=== PATIENT | female | born 1955 | race Caucasian/White ===

== ENCOUNTER → 2018-07-18 07:24 | Emergency (ER) | payer MEDICARE, MEDICAID ==
[~2018-07-18 07:24] MED LIST: Albuterol/Ipratropium NEB.SOL* Albuterol 2.5 MG/Ipratropium 0.5 MG 3 ML ONE; LORazepam TAB(*) 1 MG PO ONE; methylPREDNISolone 125 MG* 2 ML VIAL IV ONE
--- NOTE | 2018-07-18 07:43 | ED ---
Shortness of Breath - HPI Summary HPI Summary: Patient is a 62 y/o F w/ c/o SOB onsetting last night. She reports similar Sx a couple of weeks ago. EMS was called this morning, they state that upon arrival patient was coughing, no wheezes reported. EMS provided 4 L o2 NC, patient had ~ 99 o2 sat. No other treatment provided. Patient notes that she has albuterol inhaler, reports taking multiple puffs. PMHx of COPD and asthma denied, patient is a former smoker. Patient also reports productive cough w/ clear phlegm and feeling "hot and cold". She also claims that she is experiencing bloody stools and diarrhea, PHMx of hemorrhoids is reported. On triage, associated severity is rated 9/10. Nothing is noted to aggravate/alleviate Sx. Home medications and allergies are reviewed. - History of Current Complaint Time Seen by Provider: 07/18/18 07:34 Hx Obtained From: Patient Onset/Duration: Lasting Days - last night, Still Present Timing: Constant Current Severity: Severe - 9/10 on triage Aggrevating Factors: Nothing Alleviating Factors: Nothing Associated Signs & Symptoms: Cough (Productive) - Allergy/Home Medications Allergies/Adverse Reactions: Allergies Allergy/AdvReac Type Severity Reaction Status Date / Time No Known Allergies Allergy Verified 06/06/17 15:35 PMH/Surg Hx/FS Hx/Imm Hx Endocrine/Hematology History: Denies: Hx Diabetes Cardiovascular History: Denies: Hx Hypertension, Hx Pacemaker/ICD Respiratory History: Denies: Hx Asthma, Hx Chronic Obstructive Pulmonary Disease (COPD) History: Denies: Hx Renal Disease Sensory History: Denies: Hx Hearing Aid Psychiatric History: Denies: Hx Panic Disorder - Cancer History Hx Chemotherapy: No Hx Radiation Therapy: No - Surgical History Surgery Procedure, Year, and Place: LSP- 1976, c-sect x2, Lt wrist- [facility] - Family History Known Family History: Positive: Respiratory Disease - No FMHx of asthma is reported - Social History Alcohol Use: Occasionally Alcohol Amount: PT SAYS SHE USED TO DRINK DAILY Substance Use Type: Reports: None Smoking Status (MU): Former Smoker Type: Cigarettes Amount Used/How Often: 1/2 pack day Review of Systems Positive: Other - feeling "hot and cold" Positive: Shortness Of Breath, Cough - productive Positive: Diarrhea, Other - POSITIVIE - BLOODY STOOLS All Other Systems Reviewed And Are Negative: Yes Physical Exam - Summary Physical Exam Summary: VITAL SIGNS: Reviewed. GENERAL: Patient is a well-developed and nourished female who is lying comfortable in the stretcher. Patient is not in any acute respiratory distress. HEAD AND FACE: No signs of trauma. No ecchymosis, hematomas or skull depressions. No sinus tenderness. EYES: PERRLA, EOMI x 2, No injected conjunctiva, no nystagmus. EARS: Hearing grossly intact. Ear canals and tympanic membranes are within normal limits. MOUTH: Oropharynx within normal limits. NECK: Supple, trachea is midline, no adenopathy, no JVD, no carotid bruit, no c- spine tenderness, neck with full ROM. CHEST: Symmetric, no tenderness at palpation LUNGS: Decreased and coarse breath sounds bilaterally. No wheezing or crackles. CVS: Regular rate and rhythm, S1 and S2 present, no murmurs or gallops appreciated. ABDOMEN: Soft, non-tender. No signs of distention. No rebound no guarding, and no masses palpated. Bowel sounds are normal. EXTREMITIES: FROM in all major joints, no edema, no cyanosis or clubbing. NEURO: Alert and oriented x 3. No acute neurological deficits. Speech is normal and follows commands. SKIN: Dry and warm Triage Information Reviewed: Yes Vital Signs On Initial Exam: Initial Vitals Temp Pulse Resp BP Pulse Ox 98.4 F 74 25 185/98 97 07/18/18 07:35 07/18/18 07:35 07/18/18 07:35 07/18/18 07:35 07/18/18 07:35 Vital Signs Reviewed: Yes Diagnostics - Laboratory Result Diagrams: 07/18/18 07:41 07/18/18 07:41 Lab Statement: Any lab studies that have been ordered have been reviewed, and results considered in the medical decision making process. - Radiology CXR Radiology Interpretation Completed By: Radiologist Summary of Radiographic Findings: CXR. IMPRESSION: FINDINGS CONSISTENT WITH COPD, NO EVIDENCE FOR ACUTE FINDING. THIS REPORT WAS REVIEWED BY YUE BUSTOS. - EKG 0750 Cardiac Rate: Other Rate - sinus arrhythmia with rate of 70 bpm Summary of EKG Findings: EKG showed sinus arrhythmia with rate of 70 BPM, no ST elevation. Re-Evaluation - Re-Evaluation First Eval Re-Evaluation Time: 08:38 Comment: nurse stated that patient is complaining of dizziness and anxiety, Therefore the patient was given Ativan Second Eval Re-Evaluation Time: 09:40 Change: Improved Comment: Patient reported alleviation of Sx after Ativan. A reexamination of the fontanelles are clear to auscultation bilateral. I discussed all the findings and test results with the patient. Patient was instructed to return to the emergency room immediately if any of the symptoms return or worsens. Plan of care was discussed with the patient and understands and agrees. All questions were answered at patient satisfaction. There were no further complaints or concerns. Lung exam before discharge: CTA B/L. Good air exchange. No wheezing or crackles heard. CVS: S1 and S2 present. No murmurs appreciated. Patient is alert and oriented x 3. Patient is hemodynamically stable. Patient will be discharged home with follow up PCP in the next 2-3 days Course/Dx - Course Assessment/Plan: This patient is a 62-year-old female who presents to the emergency department with chief complaint of shortness of breath. Has medical history significant for diverticulitis, depression, osteoarthritis and fibromyalgia. She also has history of . In the ED course the patient has coarse breath sounds and decreased breath sounds. The patient also reports that she is a former smoker. She has no history of COPD or asthma however the patient has a prescription for albuterol. Chest x-ray impression: Findings consistent with COPD. No evidence for acute findings. Blood work without any significant abnormality except for BNP of 472. Patient reported she had occasional blood in the stool. Therefore, blood is negative. In the ED course the patient was given 1 DuoNeb's and Solu-Medrol. After these medications the symptoms have improved. Patient also reported that she was having anxiety and dizziness. Therefore the patient was given Ativan and all her symptoms have subsided. At this point the patient reports she is feeling better. A reexamination of the fontanelles are clear to auscultation bilateral. I discussed all the findings and test results with the patient. Patient was instructed to return to the emergency room immediately if any of the symptoms return or worsens. Plan of care was discussed with the patient and understands and agrees. All questions were answered at patient satisfaction. There were no further complaints or concerns. Lung exam before discharge: CTA B/L. Good air exchange. No wheezing or crackles heard. CVS: S1 and S2 present. No murmurs appreciated. Patient is alert and oriented x 3. Patient is hemodynamically stable. Patient will be discharged home with follow up PCP in the next 2-3 days - Diagnoses Differential Diagnosis/HQI/PQRI: Positive: Asthma, Bronchitis, CHF, COPD Exacerbation Provider Diagnoses: COPD with acute exacerbation Discharge - Sign-Out/Discharge Documenting (check all that apply): Patient Departure - discharge - Discharge Plan Condition: Stable Disposition: HOME Prescriptions: predniSONE TAB* [Deltasone 20 MG TAB*] 20 mg PO DAILY #8 tab Patient Education Materials: COPD (Chronic Obstructive Pulmonary Disease) (ED) Referrals: Todd Ny DO [Primary Care Provider] - 3 Days Additional Instructions: RETURN TO ED FOR ANY NEW OR WORSENING SYMPTOMS. FOLLOW UP WITH PRIMARY CARE PHYSICIAN IN 2-3 DAYS. - Billing Disposition and Condition Condition: STABLE Disposition: Home - Attestation Statements Document Initiated by Scribe: Yes Documenting Scribe: ELIAS MURPHY Provider For Whom Shane is Documenting (Include Credential): KIM SWEENEY MD Scribe Attestation: ELIAS Gardiner , scribed for KIM SWEENEY MD on 07/18/18 at 1835. Scribe Documentation Reviewed: Yes Provider Attestation: The documentation as recorded by the ELIAS bennett accurately reflects the service I personally performed and the decisions made by , KIM SWEENEY MD Status of Scribe Document: Viewed
[2018-07-18 07:57] LABS: Hematocrit 41 % (35-47); Hemoglobin 13.7 g/dl (12.0-16.0); Mean Corpuscular HGB Conc 34 g/dl (31-36); Mean Corpuscular Hemoglobin 28 pg (27-31); Mean Corpuscular Volume 83 fL (80-97); Mean Platelet Volume 9.9 fL (7.4-10.4); Platelet Count 183 10^3/ul (150-450); Red Blood Count 4.93 10^6/ul (4.00-5.40); Red Cell Distribution Width 17 % (10.5-15); White Blood Count 7.3 10^3/ul (3.5-10.8)
[2018-07-18 08:16] LABS: EGFR Non-African American 77.4 (>60)
[2018-07-18] MEDS: Albuterol/Ipratropium NEB.SOL* Albuterol 2.5 MG/Ipratropium 0.5 MG 3 ML INH SCH ×2 (08:33→08:43)
[2018-07-18 08:54] LABS: ABS Basophils 0.1 10^3/ul (0-0.2); ABS Eosinophils 0.1 10^3/ul (0-0.6); ABS Lymphocytes 1.8 10^3/ul (1.0-4.8); ABS Monocytes 0.4 10^3/ul (0-0.8); ABS Neutrophils 4.9 10^3/ul (1.5-7.7); ABS Nucleated RBC 0 10^3/ul; Eosinophil % 0.8 %; Lymphocyte % 24.6 %; Nucleated Red Blood Cells % 0.1
[2018-07-18 10:17] VITALS: BP 154/99
== END | disposition home or self-care (01) ==
LOC: ED 07:24
DX: J44.1 Chronic obstructive pulmonary disease with (acute) exacerbation (principal); Z87.891 Personal history of nicotine dependence
CPT/HCPCS: 36415; 71046; 80053; 82270; 82550; 82553; 83605; 83880; 84484; 85025; 86140; 96372; 96374; 99284; A9270-GY; J2930

== ENCOUNTER 2022-07-09 11:36 | Inpatient (IN) ==
[2022-07-09] MEDS ORDERED: Acetaminophen IV 1 GM/100ML 1,000 MG/100 ML BAG IV ONE (12:08)
[2022-07-09 12:57] LABS: ABS Basophils 0.1 10^3/ul (0-0.2); ABS Eosinophils 0.1 10^3/ul (0-0.6); ABS Lymphocytes 1.5 10^3/ul (1.0-4.8); ABS Monocytes 0.8 10^3/ul (0-0.8); ABS Neutrophils 8.3 10^3/ul (1.5-7.7); Eosinophil % 0.8 %; Hematocrit 35 % (35-47); Hemoglobin 10.9 g/dL (12.0-16.0); Mean Corpuscular HGB Conc 31 g/dL (31-36); Mean Corpuscular Hemoglobin 24 pg (27-31); Mean Corpuscular Volume 76 fL (80-97); Mean Platelet Volume 8.4 fL (7.4-10.4); Platelet Count 344 10^3/uL (150-450); Red Blood Count 4.54 10^6 /uL (3.70-4.87); Red Cell Distribution Width 17 % (10-15); White Blood Count 10.8 10^3/uL (3.5-10.8)
[2022-07-09 13:25] LABS: Urine Appearance Clear; Urine Bacteria Absent (Absent); Urine Bilirubin Negative (Negative); Urine Blood Negative (Negative); Urine Color Yellow; Urine Glucose Negative (Negative); Urine Ketones Negative (Negative); Urine Nitrite Negative (Negative); Urine Protein Negative (Negative); Urine Red Blood Cell Trace(0-2/hpf) (Absent); Urine Specific Gravity 1.008 (1.002-1.030); Urine Squamous Epithelial Cell Present (Absent); Urine Urobilinogen Negative (Negative); Urine White Blood Cell Trace(0-5/hpf) (Absent)
[2022-07-09 13:43] LABS: Albumin 3.1 g/dL (3.2-5.2); Albumin/Globulin Ratio 1.2 (1-3); Globulin 2.6 g/dL (2-4); Potassium 3.7 mmol/L (3.5-5.0); Total Bilirubin 0.5 mg/dL (0.2-1.0); Total Protein 5.7 g/dL (6.4-8.9); eGFR CKD-EPI 97.6 (>60)
[2022-07-09] MEDS ORDERED: Iohexol 350 (CONTRAST) 500 ML MDV IV ONE (13:54)
[2022-07-09] MEDS ORDERED: Nicotine GUM 4MG FRUIT FLAVOR PO PRN (13:56)
[2022-07-09] MEDS ORDERED: Morphine 2 MG/ML SYRINGE IV ONE (16:53)
[2022-07-09] MEDS ORDERED: Lactated Ringers 1000 ml BAG 1,000 ML IV ONE (19:20)
[2022-07-09] MEDS ORDERED: cefTRIAXone 2 gm/50 mL D5W 2 GM/50 ML BAG IV ONE (19:20)
[2022-07-09] MEDS ORDERED: Morphine 2 MG/ML SYRINGE IV PRN (20:14)
[2022-07-09] MEDS: metroNIDAZOLE IV 500 MG/100ML 500 MG/100 ML BAG IVPB SCH (21:41)
[2022-07-09] MEDS: Nicotine PATCH 21 MG/24 HR PATCH TRANSDERM SCH (21:46)
[2022-07-09] MEDS ORDERED: Heparin 5000 UNITS/ML 1 mL VIAL SUBCUT SCH (22:00)
[2022-07-09] MEDS ORDERED: Albuterol HFA INHALER 8 gm MDI INH PRN (22:14)
[2022-07-09 22:58] LABS: C Reactive Protein 129.51 mg/L (<8.01)
[2022-07-09 23:18] LABS: Ferritin 45.6 ng/mL (11-307)
[2022-07-10] MEDS: metroNIDAZOLE IV 500 MG/100ML 500 MG/100 ML BAG IVPB SCH ×3 (04:06→17:03)
[2022-07-10 04:34] LABS: ABS Basophils 0.1 10^3/ul (0-0.2); ABS Lymphocytes 1.1 10^3/ul (1.0-4.8); ABS Monocytes 0.6 10^3/ul (0-0.8); ABS Neutrophils 8.4 10^3/ul (1.5-7.7); Eosinophil % 0.2 %; Hematocrit 32 % (35-47); Hemoglobin 10.2 g/dL (12.0-16.0); Lymphocyte % 10.8 %; Mean Corpuscular HGB Conc 32 g/dL (31-36); Mean Corpuscular Hemoglobin 24 pg (27-31); Mean Corpuscular Volume 76 fL (80-97); Mean Platelet Volume 8.5 fL (7.4-10.4); Platelet Count 300 10^3/uL (150-450); Red Blood Count 4.22 10^6 /uL (3.70-4.87); Red Cell Distribution Width 17 % (10-15); White Blood Count 10.2 10^3/uL (3.5-10.8)
[2022-07-10 05:03] LABS: Albumin 2.8 g/dL (3.2-5.2); Albumin/Globulin Ratio 1.2 (1-3); Calcium 8.5 mg/dL (8.6-10.3); Globulin 2.3 g/dL (2-4); Potassium 3.6 mmol/L (3.5-5.0); Total Bilirubin 0.3 mg/dL (0.2-1.0); Total Protein 5.1 g/dL (6.4-8.9); eGFR CKD-EPI 101.2 (>60)
[2022-07-10] MEDS: Nicotine PATCH 21 MG/24 HR PATCH TRANSDERM SCH ×2 (05:41→15:40)
[2022-07-10] MEDS ORDERED: Ondansetron 4 mg VIAL 2 MG/ML 2 ml VIAL IV ONE (06:55)
[2022-07-10] MEDS ORDERED: Iohexol 180 (CONTRAST) 20 ML SDV IV ONE ×2 (11:14→12:47)
[2022-07-10] MEDS ORDERED: Propofol 10 MG/ML 20 ML BTL ONE ×3 (12:00→13:22)
[2022-07-10] MEDS ORDERED: Dexamethasone IV 4 MG/ML VIAL 1 ml VIAL ONE (12:00)
[2022-07-10] MEDS ORDERED: Lidocaine 2% PF 5 ML VIAL ONE (12:00)
[2022-07-10] MEDS ORDERED: Ondansetron 4 mg VIAL 2 MG/ML 2 ml VIAL ONE (12:00)
[2022-07-10] MEDS ORDERED: Midazolam 2 mg/2 ml VIAL 1 mg/ml 2 ml VIAL (2 mg) ONE (12:01)
[2022-07-10] MEDS ORDERED: fentaNYL 100 mcg/2 ml 50 MCG/ML VIAL ONE ×2 (12:01→14:29)
[2022-07-10] MEDS ORDERED: fentaNYL 100 mcg/2 ml 50 MCG/ML VIAL IV PRN (14:09)
[2022-07-10] MEDS ORDERED: Prochlorperazine 5 mg/ml 2 ml VIAL (10 mg) IV PRN (14:09)
[2022-07-10] MEDS ORDERED: Ondansetron 4 mg VIAL 2 MG/ML 2 ml VIAL IV PRN (14:09)
[2022-07-10] MEDS ORDERED: Naloxone 0.4 mg VIAL 0.4 mg/ml 1 ml VIAL IV PRN ×2 (14:09→14:28)
[2022-07-10] MEDS ORDERED: Metoclopramide 5 MG/ML VIAL (10 mg) IV PRN (14:09)
[2022-07-10 18:10] LABS: ABS Basophils 0.1 10^3/ul (0-0.2); ABS Lymphocytes 1.5 10^3/ul (1.0-4.8); ABS Monocytes 0.7 10^3/ul (0-0.8); ABS Neutrophils 5.3 10^3/ul (1.5-7.7); Eosinophil % 0.3 %; Hematocrit 31 % (35-47); Hemoglobin 9.7 g/dL (12.0-16.0); Mean Corpuscular HGB Conc 31 g/dL (31-36); Mean Corpuscular Hemoglobin 24 pg (27-31); Mean Corpuscular Volume 77 fL (80-97); Mean Platelet Volume 8.4 fL (7.4-10.4); Platelet Count 299 10^3/uL (150-450); Red Blood Count 4.06 10^6 /uL (3.70-4.87); Red Cell Distribution Width 17 % (10-15); White Blood Count 7.6 10^3/uL (3.5-10.8)
[2022-07-10 18:18] LABS: Activated Partial Thrombo Time 31.7 seconds (26.0-38.0); INR 1.26 (0.89-1.11)
[2022-07-10] MEDS: Acetaminophen IV 1 GM/100ML 1,000 MG/100 ML BAG IV PRN (21:07)
[2022-07-10] MEDS: Heparin 5000 UNITS/ML 1 mL VIAL SUBCUT SCH (21:34)
[2022-07-10] MEDS: Latanoprost 0.005% 2.5 ml BTL BOTH EYES SCH (21:35)
[2022-07-10] MEDS: cefTRIAXone 1 gm/50 mL D5W 1 GM/50 ML BAG IV SCH (21:35)
[2022-07-11] MEDS: metroNIDAZOLE IV 500 MG/100ML 500 MG/100 ML BAG IVPB SCH ×3 (01:35→16:25)
[2022-07-11 06:57] LABS: ABS Basophils 0.1 10^3/ul (0-0.2); ABS Monocytes 0.3 10^3/ul (0-0.8); ABS Neutrophils 6.2 10^3/ul (1.5-7.7); Eosinophil % 0.4 %; Hematocrit 33 % (35-47); Hemoglobin 10.6 g/dL (12.0-16.0); Lymphocyte % 12.9 %; Mean Corpuscular HGB Conc 32 g/dL (31-36); Mean Corpuscular Hemoglobin 24 pg (27-31); Mean Corpuscular Volume 76 fL (80-97); Mean Platelet Volume 8.6 fL (7.4-10.4); Platelet Count 326 10^3/uL (150-450); Red Blood Count 4.36 10^6 /uL (3.70-4.87); Red Cell Distribution Width 17 % (10-15); White Blood Count 7.6 10^3/uL (3.5-10.8)
[2022-07-11 07:23] LABS: Magnesium 1.8 mg/dL (1.9-2.7); Potassium 3.7 mmol/L (3.5-5.0); eGFR CKD-EPI 97.6 (>60)
[2022-07-11] MEDS: Nicotine PATCH 21 MG/24 HR PATCH TRANSDERM SCH (07:59)
[2022-07-11] MEDS: Heparin 5000 UNITS/ML 1 mL VIAL SUBCUT SCH ×2 (08:01→21:29)
[2022-07-11] MEDS: Acetaminophen IV 1 GM/100ML 1,000 MG/100 ML BAG IV PRN ×2 (08:16→16:03)
[2022-07-11] MEDS ORDERED: Bismuth Subsalicylate (BTL) 525 MG/30 ML (BULK BTL) PO SCH (21:00)
[2022-07-11] MEDS: cefTRIAXone 1 gm/50 mL D5W 1 GM/50 ML BAG IV SCH (21:30)
[2022-07-11] MEDS: Latanoprost 0.005% 2.5 ml BTL BOTH EYES SCH (21:35)
[2022-07-12] MEDS: metroNIDAZOLE IV 500 MG/100ML 500 MG/100 ML BAG IVPB SCH ×4 (00:59→22:09)
[2022-07-12] MEDS: Acetaminophen IV 1 GM/100ML 1,000 MG/100 ML BAG IV PRN (06:09)
[2022-07-12] MEDS ORDERED: Magnesium Sulfate 2 gm BAG 2 GM/50 ML BAG IVPB ONE (07:34)
[2022-07-12] MEDS: Nicotine PATCH 21 MG/24 HR PATCH TRANSDERM SCH (09:18)
[2022-07-12] MEDS: Heparin 5000 UNITS/ML 1 mL VIAL SUBCUT SCH ×2 (09:32→20:40)
[2022-07-12] MEDS: cefTRIAXone 1 gm/50 mL D5W 1 GM/50 ML BAG IV SCH (20:40)
[2022-07-12] MEDS: Latanoprost 0.005% 2.5 ml BTL BOTH EYES SCH (20:49)
[2022-07-13] MEDS: metroNIDAZOLE IV 500 MG/100ML 500 MG/100 ML BAG IVPB SCH ×3 (04:29→20:28)
[2022-07-13 06:04] LABS: ABS Eosinophils 0.1 10^3/ul (0-0.6); ABS Lymphocytes 1.1 10^3/ul (1.0-4.8); ABS Monocytes 0.6 10^3/ul (0-0.8); ABS Neutrophils 5.4 10^3/ul (1.5-7.7); Eosinophil % 1.7 %; Hematocrit 32 % (35-47); Hemoglobin 9.9 g/dL (12.0-16.0); Lymphocyte % 15.6 %; Mean Corpuscular HGB Conc 32 g/dL (31-36); Mean Corpuscular Hemoglobin 24 pg (27-31); Mean Corpuscular Volume 76 fL (80-97); Mean Platelet Volume 8.9 fL (7.4-10.4); Platelet Count 303 10^3/uL (150-450); Red Blood Count 4.14 10^6 /uL (3.70-4.87); Red Cell Distribution Width 17 % (10-15); White Blood Count 7.3 10^3/uL (3.5-10.8)
[2022-07-13 06:14] LABS: Calcium 8.2 mg/dL (8.6-10.3); Potassium 3.4 mmol/L (3.5-5.0)
[2022-07-13] MEDS: Heparin 5000 UNITS/ML 1 mL VIAL SUBCUT SCH ×2 (08:37→20:26)
[2022-07-13] MEDS: Nicotine PATCH 21 MG/24 HR PATCH TRANSDERM SCH (08:37)
[2022-07-13] MEDS: KCL 20 MEQ/100 ML IVPREMIX 20 MEQ/100 ML BAG IV SCH ×2 (10:10→12:09)
[2022-07-13] MEDS: cefTRIAXone 1 gm/50 mL D5W 1 GM/50 ML BAG IV SCH (19:31)
[2022-07-13] MEDS: Latanoprost 0.005% 2.5 ml BTL BOTH EYES SCH (20:48)
[2022-07-14 06:14] LABS: Hematocrit 32 % (35-47); Hemoglobin 10.1 g/dL (12.0-16.0); Mean Corpuscular HGB Conc 32 g/dL (31-36); Mean Corpuscular Hemoglobin 24 pg (27-31); Mean Corpuscular Volume 76 fL (80-97); Mean Platelet Volume 8.8 fL (7.4-10.4); Platelet Count 315 10^3/uL (150-450); Red Blood Count 4.21 10^6 /uL (3.70-4.87); Red Cell Distribution Width 17 % (10-15); White Blood Count 7.5 10^3/uL (3.5-10.8)
[2022-07-14 06:34] LABS: Calcium 8.2 mg/dL (8.6-10.3); Magnesium 1.8 mg/dL (1.9-2.7); Potassium 3.3 mmol/L (3.5-5.0)
[2022-07-14] MEDS ORDERED: Potassium Chlor 20 meq TAB.ER PO ONE (07:14)
[2022-07-14] MEDS ORDERED: Magnesium Sulfate 2 gm BAG 2 GM/50 ML BAG IVPB ONE (07:14)
[2022-07-14] MEDS: Nicotine PATCH 21 MG/24 HR PATCH TRANSDERM SCH (08:03)
[2022-07-14] MEDS: Heparin 5000 UNITS/ML 1 mL VIAL SUBCUT SCH (08:04)
[2022-07-14] MEDS ORDERED: PEG 3000 GI LAVAGE 1 GALLON PO ONE (09:00)
[2022-07-14] MEDS: cefTRIAXone 1 gm/50 mL D5W 1 GM/50 ML BAG IV SCH (19:58)
[2022-07-14] MEDS ORDERED: Scopolamine 1 mg/72hr PATCH TRANSDERM ONE (21:17)
[2022-07-14] MEDS: Latanoprost 0.005% 2.5 ml BTL BOTH EYES SCH (23:08)
[2022-07-15] MEDS: metroNIDAZOLE IV 500 MG/100ML 500 MG/100 ML BAG IVPB SCH ×2 (04:57→13:59)
[2022-07-15] MEDS ORDERED: Scopolamine 1 mg/72hr PATCH TRANSDERM ONE (06:00)
[2022-07-15] MEDS ORDERED: Famotidine IV 10 MG/ML 2 ml VIAL (20 mg) IV ONE (06:00)
[2022-07-15] MEDS ORDERED: Buffered Lidocaine 1% SYRIN 1 ml INTRADERM ONE (06:00)
[2022-07-15 06:12] LABS: Calcium 8.3 mg/dL (8.6-10.3); Potassium 3.4 mmol/L (3.5-5.0); eGFR CKD-EPI 106.7 (>60)
[2022-07-15 06:55] LABS: ABS Basophils 0.1 10^3/ul (0-0.2); ABS Eosinophils 0.1 10^3/ul (0-0.6); ABS Lymphocytes 1.1 10^3/ul (1.0-4.8); ABS Monocytes 0.9 10^3/ul (0-0.8); ABS Neutrophils 8.9 10^3/ul (1.5-7.7); Eosinophil % 0.7 %; Hematocrit 31 % (35-47); Hemoglobin 10.1 g/dL (12.0-16.0); Lymphocyte % 9.6 %; Mean Corpuscular HGB Conc 32 g/dL (31-36); Mean Corpuscular Hemoglobin 24 pg (27-31); Mean Corpuscular Volume 75 fL (80-97); Mean Platelet Volume 8.8 fL (7.4-10.4); Platelet Count 313 10^3/uL (150-450); Red Blood Count 4.18 10^6 /uL (3.70-4.87); Red Cell Distribution Width 18 % (10-15)
[2022-07-15] MEDS: Nicotine PATCH 21 MG/24 HR PATCH TRANSDERM SCH (08:44)
[2022-07-15] MEDS ORDERED: Bupivacaine 0.25% w/EPI 10 ML SDV ONE (16:44)
[2022-07-15] MEDS ORDERED: Propofol 10 MG/ML 20 ML BTL ONE ×2 (18:38→22:42)
[2022-07-15] MEDS ORDERED: fentaNYL 250 mcg/5 ml 50 MCG/ML 5 ml VIAL (250 MCG) ONE ×2 (18:38→20:20)
[2022-07-15] MEDS ORDERED: Rocuronium 50 mg VIAL 10 mg/ml 5 ml VIAL (50 mg) ONE (18:38)
[2022-07-15] MEDS ORDERED: Lidocaine 2% PF 5 ML VIAL ONE (18:38)
[2022-07-15] MEDS ORDERED: Naloxone 0.4 mg VIAL 0.4 mg/ml 1 ml VIAL IV PRN (19:28)
[2022-07-15] MEDS ORDERED: Prochlorperazine 5 mg/ml 2 ml VIAL (10 mg) IV PRN (19:28)
[2022-07-15] MEDS ORDERED: HYDROmorphone 1 MG/1 ML SYRINGE IV PRN (19:28)
[2022-07-15] MEDS ORDERED: fentaNYL 100 mcg/2 ml 50 MCG/ML VIAL IV PRN (19:28)
[2022-07-15] MEDS ORDERED: Ketamine HCL 50 mg/ml 10 ml VIAL (500 MG) ONE ×2 (19:39→22:31)
[2022-07-15] MEDS ORDERED: HYDROmorphone 0.5 MG/0.5 ML SYRINGE ONE ×4 (20:07→22:50)
[2022-07-15] MEDS ORDERED: Metoprolol Tartrate 5 mg VIAL 5 ml VIAL (1 mg/ml) ONE (20:26)
[2022-07-15] MEDS ORDERED: nitroGLYCERIN DRIP 25,000 MCG/250 ML BTL ONE (20:42)
[2022-07-15] MEDS ORDERED: Labetalol IV 5 MG/ML 20 ml VIAL ONE (21:18)
[2022-07-15] MEDS ORDERED: Acetaminophen IV 1 GM/100ML 1,000 MG/100 ML BAG IV ONE (21:52)
[2022-07-15] MEDS ORDERED: fentaNYL 100 mcg/2 ml 50 MCG/ML VIAL ONE ×2 (22:00→22:28)
[2022-07-15] MEDS ORDERED: Naloxone 0.4 mg VIAL 0.4 mg/ml 1 ml VIAL IV PUSH PRN (22:35)
[2022-07-15] MEDS ORDERED: HYDROmorphone PCA 20 MG/20 ML PCA.SYRING PCA SCH (23:00)
[2022-07-16] MEDS: Latanoprost 0.005% 2.5 ml BTL BOTH EYES SCH ×2 (01:41→21:41)
[2022-07-16] MEDS ORDERED: metroNIDAZOLE IV 500 MG/100ML 500 MG/100 ML BAG IVPB SCH (02:00)
[2022-07-16] MEDS: cefTRIAXone 1 gm/50 mL D5W 1 GM/50 ML BAG IV SCH ×2 (02:01→06:59)
[2022-07-16] MEDS: Lactated Ringers 1000 ml BAG 1,000 ML IV SCH (02:45)
[2022-07-16] MEDS: metroNIDAZOLE IV 500 MG/100ML 500 MG/100 ML BAG IVPB SCH ×4 (02:46→18:04)
[2022-07-16 06:27] LABS: Calcium 8.6 mg/dL (8.6-10.3); Magnesium 1.7 mg/dL (1.9-2.7); Potassium 3.9 mmol/L (3.5-5.0); eGFR CKD-EPI 107.9 (>60)
[2022-07-16 06:37] LABS: ABS Lymphocytes 0.7 10^3/ul (1.0-4.8); ABS Monocytes 0.7 10^3/ul (0-0.8); ABS Neutrophils 18.1 10^3/ul (1.5-7.7); Hematocrit 32 % (35-47); Hemoglobin 10.2 g/dL (12.0-16.0); Lymphocyte % 3.6 %; Mean Corpuscular HGB Conc 32 g/dL (31-36); Mean Corpuscular Hemoglobin 24 pg (27-31); Mean Corpuscular Volume 74 fL (80-97); Mean Platelet Volume 9.1 fL (7.4-10.4); Platelet Count 344 10^3/uL (150-450); Red Blood Count 4.26 10^6 /uL (3.70-4.87); Red Cell Distribution Width 18 % (10-15); White Blood Count 19.5 10^3/uL (3.5-10.8)
[2022-07-16] MEDS ORDERED: Magnesium Sulfate 2 gm BAG 2 GM/50 ML BAG IVPB ONE (07:20)
[2022-07-16] MEDS: Enoxaparin 40 MG/0.4 ML SYR SUBCUT SCH (08:41)
[2022-07-16] MEDS: Nicotine PATCH 21 MG/24 HR PATCH TRANSDERM SCH (08:41)
[2022-07-17] MEDS: cefTRIAXone 1 gm/50 mL D5W 1 GM/50 ML BAG IV SCH (02:00)
[2022-07-17] MEDS: metroNIDAZOLE IV 500 MG/100ML 500 MG/100 ML BAG IVPB SCH ×3 (02:53→18:42)
[2022-07-17] MEDS: Lactated Ringers 1000 ml BAG 1,000 ML IV SCH (03:56)
[2022-07-17] MEDS: Ondansetron 4 mg VIAL 2 MG/ML 2 ml VIAL IV PRN ×2 (04:26→14:51)
[2022-07-17 06:18] LABS: Calcium 8.3 mg/dL (8.6-10.3); Potassium 3.8 mmol/L (3.5-5.0)
[2022-07-17 07:35] LABS: ABS Lymphocytes 1.1 10^3/ul (1.0-4.8); ABS Monocytes 1.3 10^3/ul (0-0.8); ABS Neutrophils 13.4 10^3/ul (1.5-7.7); Eosinophil % 0.2 %; Hematocrit 31 % (35-47); Hemoglobin 9.7 g/dL (12.0-16.0); Lymphocyte % 6.7 %; Mean Corpuscular HGB Conc 32 g/dL (31-36); Mean Corpuscular Hemoglobin 24 pg (27-31); Mean Corpuscular Volume 75 fL (80-97); Platelet Count 337 10^3/uL (150-450); Red Blood Count 4.11 10^6 /uL (3.70-4.87); Red Cell Distribution Width 18 % (10-15); White Blood Count 15.9 10^3/uL (3.5-10.8)
[2022-07-17] MEDS: Enoxaparin 40 MG/0.4 ML SYR SUBCUT SCH (09:24)
[2022-07-17] MEDS: Nicotine PATCH 21 MG/24 HR PATCH TRANSDERM SCH (09:31)
[2022-07-17] MEDS: Prochlorperazine 5 mg/ml 2 ml VIAL (10 mg) IV PRN (18:38)
[2022-07-18] MEDS: Latanoprost 0.005% 2.5 ml BTL BOTH EYES SCH ×2 (00:25→19:59)
[2022-07-18] MEDS: HYDROmorphone 0.5 MG/0.5 ML SYRINGE IV SLOW PU PRN ×2 (00:44→06:04)
[2022-07-18] MEDS: cefTRIAXone 1 gm/50 mL D5W 1 GM/50 ML BAG IV SCH (01:54)
[2022-07-18] MEDS: metroNIDAZOLE IV 500 MG/100ML 500 MG/100 ML BAG IVPB SCH ×3 (02:36→18:42)
[2022-07-18 06:43] LABS: Calcium 8.2 mg/dL (8.6-10.3); Magnesium 1.6 mg/dL (1.9-2.7); Potassium 3.6 mmol/L (3.5-5.0); eGFR CKD-EPI 109.1 (>60)
[2022-07-18] MEDS: Nicotine PATCH 21 MG/24 HR PATCH TRANSDERM SCH (08:16)
[2022-07-18] MEDS: Enoxaparin 40 MG/0.4 ML SYR SUBCUT SCH (08:20)
[2022-07-18] MEDS: Lactated Ringers 1000 ml BAG 1,000 ML IV SCH (09:17)
[2022-07-18] MEDS: oxyCODONE/Acetamin 5/325 mg TAB PO PRN ×2 (09:37→15:58)
[2022-07-18] MEDS: Ondansetron 4 mg VIAL 2 MG/ML 2 ml VIAL IV PRN (15:58)
[2022-07-18] MEDS ORDERED: Magnesium Sulf 4 GM/100 ML IV 4,000 MG/100 ML BAG IVPB ONE (16:30)
[2022-07-19] MEDS: cefTRIAXone 1 gm/50 mL D5W 1 GM/50 ML BAG IV SCH (01:44)
[2022-07-19] MEDS: oxyCODONE/Acetamin 5/325 mg TAB PO PRN ×3 (01:56→21:47)
[2022-07-19] MEDS: Ondansetron 4 mg VIAL 2 MG/ML 2 ml VIAL IV PRN ×3 (01:57→18:19)
[2022-07-19] MEDS: metroNIDAZOLE IV 500 MG/100ML 500 MG/100 ML BAG IVPB SCH ×2 (02:36→10:28)
[2022-07-19 06:00] LABS: ABS Lymphocytes 0.9 10^3/ul (1.0-4.8); ABS Monocytes 0.7 10^3/ul (0-0.8); ABS Neutrophils 11.1 10^3/ul (1.5-7.7); Eosinophil % 0.3 %; Hematocrit 30 % (35-47); Hemoglobin 9.6 g/dL (12.0-16.0); Mean Corpuscular HGB Conc 32 g/dL (31-36); Mean Corpuscular Hemoglobin 24 pg (27-31); Mean Corpuscular Volume 74 fL (80-97); Mean Platelet Volume 8.7 fL (7.4-10.4); Platelet Count 376 10^3/uL (150-450); Red Blood Count 4.05 10^6 /uL (3.70-4.87); Red Cell Distribution Width 18 % (10-15); White Blood Count 12.7 10^3/uL (3.5-10.8)
[2022-07-19 06:12] LABS: Anion Gap 4 mmol/L (2-11); Blood Urea Nitrogen 6 mg/dL (6-24); CO2 Carbon Dioxide 35 mmol/L (22-32); Calcium 8.3 mg/dL (8.6-10.3); Chloride 97 mmol/L (101-111); Glucose 106 mg/dL (70-100); Potassium 3.5 mmol/L (3.5-5.0); Sodium 136 mmol/L (135-145); eGFR CKD-EPI 107.3 (>60)
[2022-07-19 07:59] LABS: Magnesium 2.1 mg/dL (1.9-2.7)
[2022-07-19] MEDS: Enoxaparin 40 MG/0.4 ML SYR SUBCUT SCH (08:54)
[2022-07-19] MEDS: Nicotine PATCH 21 MG/24 HR PATCH TRANSDERM SCH (08:56)
[2022-07-19] MEDS: Scopolamine 1 mg/72hr PATCH TRANSDERM SCH (10:29)
[2022-07-19] MEDS: Acetaminophen IV 1 GM/100ML 1,000 MG/100 ML BAG IV PRN (10:29)
[2022-07-19 13:25] LABS: Lipase < 10 U/L (11.0-82.0)
[2022-07-19] MEDS: Latanoprost 0.005% 2.5 ml BTL BOTH EYES SCH (21:49)
[2022-07-19] MEDS: Prochlorperazine 5 mg/ml 2 ml VIAL (10 mg) IV PRN (21:53)
[2022-07-20] MEDS: cefTRIAXone 1 gm/50 mL D5W 1 GM/50 ML BAG IV SCH (02:38)
[2022-07-20 06:54] LABS: ABS Eosinophils 0.1 10^3/ul (0-0.6); ABS Lymphocytes 1.1 10^3/ul (1.0-4.8); ABS Monocytes 0.8 10^3/ul (0-0.8); ABS Neutrophils 9.5 10^3/ul (1.5-7.7); Eosinophil % 1.1 %; Hematocrit 32 % (35-47); Hemoglobin 10.2 g/dL (12.0-16.0); Lymphocyte % 9.7 %; Mean Corpuscular HGB Conc 32 g/dL (31-36); Mean Corpuscular Hemoglobin 23 pg (27-31); Mean Corpuscular Volume 74 fL (80-97); Mean Platelet Volume 8.6 fL (7.4-10.4); Platelet Count 445 10^3/uL (150-450); Red Blood Count 4.37 10^6 /uL (3.70-4.87); Red Cell Distribution Width 19 % (10-15); White Blood Count 11.6 10^3/uL (3.5-10.8)
[2022-07-20] MEDS: oxyCODONE/Acetamin 5/325 mg TAB PO PRN ×2 (07:53→14:14)
[2022-07-20] MEDS: Nicotine PATCH 21 MG/24 HR PATCH TRANSDERM SCH (08:38)
[2022-07-20] MEDS: Enoxaparin 40 MG/0.4 ML SYR SUBCUT SCH (08:38)
[2022-07-20] MEDS: HYDROmorphone 0.5 MG/0.5 ML SYRINGE IV SLOW PU PRN (08:42)
[2022-07-20] MEDS: Acetaminophen IV 1 GM/100ML 1,000 MG/100 ML BAG IV PRN (20:33)
[2022-07-20] MEDS: Latanoprost 0.005% 2.5 ml BTL BOTH EYES SCH (21:21)
[2022-07-21] MEDS: HYDROmorphone 0.5 MG/0.5 ML SYRINGE IV SLOW PU PRN ×2 (00:56→23:35)
[2022-07-21] MEDS: cefTRIAXone 1 gm/50 mL D5W 1 GM/50 ML BAG IV SCH (02:13)
[2022-07-21 07:07] LABS: ABS Eosinophils 0.2 10^3/ul (0-0.6); ABS Lymphocytes 1.1 10^3/ul (1.0-4.8); ABS Monocytes 0.9 10^3/ul (0-0.8); ABS Neutrophils 7.9 10^3/ul (1.5-7.7); Eosinophil % 1.8 %; Hematocrit 31 % (35-47); Hemoglobin 10.1 g/dL (12.0-16.0); Lymphocyte % 11.3 %; Mean Corpuscular HGB Conc 32 g/dL (31-36); Mean Corpuscular Hemoglobin 24 pg (27-31); Mean Corpuscular Volume 74 fL (80-97); Mean Platelet Volume 8.4 fL (7.4-10.4); Platelet Count 446 10^3/uL (150-450); Red Blood Count 4.23 10^6 /uL (3.70-4.87); Red Cell Distribution Width 18 % (10-15); White Blood Count 10.2 10^3/uL (3.5-10.8)
[2022-07-21 07:27] LABS: Calcium 8.8 mg/dL (8.6-10.3); Magnesium 1.8 mg/dL (1.9-2.7); Potassium 3.5 mmol/L (3.5-5.0); eGFR CKD-EPI 104.5 (>60)
[2022-07-21] MEDS: Enoxaparin 40 MG/0.4 ML SYR SUBCUT SCH (08:07)
[2022-07-21] MEDS: Nicotine PATCH 21 MG/24 HR PATCH TRANSDERM SCH (08:07)
[2022-07-21] MEDS: oxyCODONE/Acetamin 5/325 mg TAB PO PRN ×2 (08:08→13:10)
[2022-07-21] MEDS: Ondansetron 4 mg VIAL 2 MG/ML 2 ml VIAL IV PRN ×2 (16:02→16:51)
[2022-07-21] MEDS ORDERED: Al Hydrox/Mg Hydrox/Simet LIQ 30 ML UDC PO PRN (16:44)
[2022-07-21] MEDS: Latanoprost 0.005% 2.5 ml BTL BOTH EYES SCH (20:42)
[2022-07-22] MEDS: cefTRIAXone 1 gm/50 mL D5W 1 GM/50 ML BAG IV SCH (02:22)
[2022-07-22] MEDS: oxyCODONE/Acetamin 5/325 mg TAB PO PRN ×3 (05:39→13:54)
[2022-07-22 06:21] LABS: ABS Eosinophils 0.2 10^3/ul (0-0.6); ABS Lymphocytes 0.9 10^3/ul (1.0-4.8); ABS Monocytes 0.8 10^3/ul (0-0.8); ABS Neutrophils 7.7 10^3/ul (1.5-7.7); Eosinophil % 1.8 %; Hematocrit 31 % (35-47); Lymphocyte % 9.3 %; Mean Corpuscular HGB Conc 32 g/dL (31-36); Mean Corpuscular Hemoglobin 24 pg (27-31); Mean Corpuscular Volume 73 fL (80-97); Mean Platelet Volume 8.2 fL (7.4-10.4); Platelet Count 427 10^3/uL (150-450); Red Blood Count 4.19 10^6 /uL (3.70-4.87); Red Cell Distribution Width 19 % (10-15); White Blood Count 9.7 10^3/uL (3.5-10.8)
[2022-07-22 06:39] LABS: Calcium 8.5 mg/dL (8.6-10.3); Potassium 3.2 mmol/L (3.5-5.0)
[2022-07-22] MEDS ORDERED: Potassium Chloride LIQUID 20 MEQ/15 ML LIQUID PO ONE (07:18)
[2022-07-22 08:04] LABS: Magnesium 1.7 mg/dL (1.9-2.7)
[2022-07-22] MEDS ORDERED: Magnesium Sulfate 2 gm BAG 2 GM/50 ML BAG IVPB ONE (08:30)
[2022-07-22] MEDS: Ondansetron 4 mg VIAL 2 MG/ML 2 ml VIAL IV PRN (08:50)
[2022-07-22] MEDS: Nicotine PATCH 21 MG/24 HR PATCH TRANSDERM SCH (08:50)
[2022-07-22] MEDS: HYDROmorphone 0.5 MG/0.5 ML SYRINGE IV SLOW PU PRN (08:50)
[2022-07-22] MEDS: Enoxaparin 40 MG/0.4 ML SYR SUBCUT SCH (08:50)
[2022-07-22] MEDS: KCL 10 MEQ/50 ML IVPREMIX 10 MEQ/50 ML BAG IV SCH ×2 (08:51→09:24)
[2022-07-22] MEDS: Scopolamine 1 mg/72hr PATCH TRANSDERM SCH (10:26)
[2022-07-22] MEDS: Potassium Chlor 20 meq TAB.ER PO SCH ×2 (10:27→13:44)
[2022-07-22] MEDS ORDERED: Ondansetron ODT 4 mg TAB 4 MG TAB PO ONE (14:01)
[2022-07-22 15:34] VITALS: BP 153/86
== END 2022-07-22 17:40 | disposition home or self-care (01) | DRG 330 ==
LOC: ED 11:36 → EDHOLD 20:07 → SUATTDRO 20:07 → AA 07-10 08:26 → SSU 07-10 15:34
PROVIDERS: ADMIT Internal Medicine; ATTEND Hospitalist